=== PATIENT | male | born 1960 | race African-American/Black ===

== ENCOUNTER 2019-06-29 02:11 | Emergency (ER) | payer SELFPAY ==
[~2019-06-29] VITALS: Ht 185.4 cm; Wt 65.0 kg
[2019-06-29] MEDS ORDERED: ONDANSETRON 4MG ODT PO STA (05:58)
[2019-06-29] MEDS ORDERED: SODIUM CHLORIDE 0.9% 1,000 ML IV ONE (05:58)
[2019-06-29] MEDS ORDERED: MORPHINE SULFATE 4 MG/ML CPJ (NOT FOR IM USE) IV STA (05:58)
[2019-06-29] MEDS ORDERED: FAMOTIDINE 20MG/2ML VIAL IV STA (05:58)
[2019-06-29 06:08] LABS: BASOPHILS % 1.1 % (0.0-2.0); EOSINOPHILS % 1.9 % (0.0-5.0); HEMATOCRIT. 43.8 % (42.0-52.0); HEMOGLOBIN. 14.9 g/dL (14.0-18.0); LYMPHOCYTES % 30.3 % (20.0-50.0); MEAN CORPUSCULAR HEMOGLOBIN 31.2 pg (28.0-32.0); MEAN CORPUSCULAR VOLUME 91.6 fL (80.0-94.0); MEAN PLATELET VOLUME 7.2 fl (7.4-10.4); MONOCYTES % 6.6 % (2.0-8.0); NEUTROPHILS % 60.1 % (40.0-76.0); PLATELET 301 x1000/uL (130-400); RED BLOOD CELL COUNT 4.78 mill/uL (4.7-6.1); RED CELL DISTRIBUTION WIDTH 13.7 % (11.6-14.6)
[2019-06-29 06:15] LABS: CHLORIDE 105 mEq/L (98-107)
[2019-06-29 06:16] LABS: PROTHROMBIN TIME 10.7 sec (9.6-11.0)
[2019-06-29 06:19] LABS: ETHANOL BLOOD < 10 mg/dL
[2019-06-29 06:25] VITALS: BP 120/93
== END 2019-06-29 08:12 | disposition home or self-care (01) ==
LOC: ER 02:11
DX: G89.29 Other chronic pain (principal); R10.13 Epigastric pain; R11.2 Nausea with vomiting, unspecified; F17.210 Nicotine dependence, cigarettes, uncomplicated; Z88.6 Allergy status to analgesic agent; Z87.19 Personal history of other diseases of the digestive system
CPT/HCPCS: 36415; 71045; 80053; 80320; 83690; 84484; 85025; 85610; 93005; 96361; 96374; 99284; 99406; J3490; J7030; Z7610; G0480

== ENCOUNTER 2019-08-31 09:59 | Emergency (ER) | payer MEDICAID ==
[~2019-08-31] VITALS: Ht 175.3 cm; Wt 70.0 kg
[2019-08-31] MEDS ORDERED: VISCOUS LIDOCAINE 2% 15 ML UDC PO STA (10:34)
[2019-08-31] MEDS ORDERED: MAGNESIUM/ALUMINUM HYDROXIDE/SIMETHICONE 30ML UDC PO STA (10:34)
[2019-08-31] MEDS ORDERED: DICYCLOMINE HCL 10MG/ML 2ML AMP IM ONE (10:45)
[2019-08-31] MEDS ORDERED: FAMOTIDINE 20MG TABLET PO ONE (10:45)
[2019-08-31] MEDS ORDERED: ONDANSETRON 4MG ODT PO ONE (10:45)
[2019-08-31] MEDS ORDERED: ONDANSETRON 4MG ODT PO NR (11:00)
[2019-08-31] MEDS ORDERED: ONDANSETRON 4MG ODT ONE (11:09)
[2019-08-31 12:40] VITALS: BP 158/80
== END 2019-08-31 12:52 | disposition home or self-care (01) ==
LOC: ER 09:59
DX: R10.13 Epigastric pain (principal); R11.2 Nausea with vomiting, unspecified; R52 Pain, unspecified; Z88.6 Allergy status to analgesic agent; Z87.11 Personal history of peptic ulcer disease
CPT/HCPCS: 96372; 99284; J0500; Q0162

== ENCOUNTER 2019-09-01 09:09 | Emergency (ER) | payer MEDICAID ==
[~2019-09-01] VITALS: Ht 185.4 cm; Wt 61.0 kg
[2019-09-01] MEDS ORDERED: MORPHINE SULFATE 4 MG/ML CPJ (NOT FOR IM USE) IV STA (11:25)
[2019-09-01] MEDS ORDERED: SODIUM CHLORIDE 0.9% 1,000 ML IV SCH (11:25)
[2019-09-01 11:53] LABS: BASOPHILS % 0.7 % (0.0-2.0); EOSINOPHILS % 0.9 % (0.0-5.0); HEMATOCRIT. 52.5 % (42.0-52.0); HEMOGLOBIN. 17.5 g/dL (14.0-18.0); LYMPHOCYTES % 22.1 % (20.0-50.0); MEAN CORPUSCULAR HEMOGLOBIN 30.6 pg (28.0-32.0); MEAN CORPUSCULAR VOLUME 91.5 fL (80.0-94.0); MEAN PLATELET VOLUME 7.1 fl (7.4-10.4); MONOCYTES % 7.7 % (2.0-8.0); NEUTROPHILS % 68.6 % (40.0-76.0); PLATELET 328 x1000/uL (130-400); RED BLOOD CELL COUNT 5.73 mill/uL (4.7-6.1); RED CELL DISTRIBUTION WIDTH 13.2 % (11.6-14.6)
[2019-09-01 11:55] LABS: CHLORIDE 104 mEq/L (98-107)
[2019-09-01] MEDS ORDERED: ONDANSETRON HCL 4MG/2ML INJ IV ONE (12:00)
[2019-09-01] MEDS ORDERED: METOCLOPRAMIDE HCL 10MG/2ML VIAL IV ONE (13:30)
[2019-09-01 15:00] VITALS: BP 132/78
== END 2019-09-01 14:57 | disposition home or self-care (01) ==
LOC: ER 09:09
DX: K52.9 Noninfective gastroenteritis and colitis, unspecified (principal); F17.210 Nicotine dependence, cigarettes, uncomplicated; Z71.6 Tobacco abuse counseling; Z88.6 Allergy status to analgesic agent; Z87.11 Personal history of peptic ulcer disease
CPT/HCPCS: 36415; 80053; 83690; 85025; 96361; 96374; 96375; 99283; J2270; J2405; J2765; Z7610

== ENCOUNTER 2019-09-08 23:18 | Emergency (ER) | payer MEDICAID ==
[~2019-09-08] VITALS: Ht 175.3 cm; Wt 65.0 kg
[2019-09-09] MEDS ORDERED: METOCLOPRAMIDE HCL 10MG/2ML VIAL IV SCH (01:24)
[2019-09-09] MEDS ORDERED: MAGNESIUM/ALUMINUM HYDROXIDE/SIMETHICONE 30ML UDC PO SCH (01:24)
[2019-09-09] MEDS ORDERED: SODIUM CHLORIDE 0.9% 1,000 ML IV ONE (01:24)
[2019-09-09] MEDS ORDERED: FAMOTIDINE 20MG/2ML VIAL IV SCH (01:24)
[2019-09-09] MEDS ORDERED: VISCOUS LIDOCAINE 2% 15 ML UDC PO SCH (01:24)
[2019-09-09 02:27] LABS: EOSINOPHILS % 3.4 % (0.0-5.0); HEMATOCRIT. 42.1 % (42.0-52.0); HEMOGLOBIN. 14.2 g/dL (14.0-18.0); LYMPHOCYTES % 29.7 % (20.0-50.0); MEAN CORPUSCULAR HEMOGLOBIN 30.5 pg (28.0-32.0); MEAN CORPUSCULAR VOLUME 90.1 fL (80.0-94.0); MEAN PLATELET VOLUME 7.4 fl (7.4-10.4); MONOCYTES % 6.7 % (2.0-8.0); NEUTROPHILS % 59.2 % (40.0-76.0); PLATELET 288 x1000/uL (130-400); RED BLOOD CELL COUNT 4.67 mill/uL (4.7-6.1); RED CELL DISTRIBUTION WIDTH 12.9 % (11.6-14.6)
[2019-09-09 02:30] LABS: CHLORIDE 107 mEq/L (98-107)
[2019-09-09 04:30] VITALS: BP 133/87
== END 2019-09-09 04:49 | disposition home or self-care (01) ==
LOC: ER 23:18
DX: K29.70 Gastritis, unspecified, without bleeding (principal); K29.80 Duodenitis without bleeding; K21.9 Gastro-esophageal reflux disease without esophagitis; Z88.6 Allergy status to analgesic agent
CPT/HCPCS: 36415; 74176; 80053; 83690; 85025; 96361; 96374; 96375; 99284; J2765; J3490

== ENCOUNTER 2023-11-30 06:56 | Emergency (ER) | payer OTHER ==
[~2023-11-30] VITALS: Ht 185.4 cm; Wt 80.0 kg
[2023-11-30 07:14] VITALS: BP 164/91; PULSE 80; RESP 18; TEMP 98; O2SAT 98
== END 2023-11-30 09:04 | disposition home or self-care (01) ==
LOC: ER 06:56
DX: R10.13 Epigastric pain (principal); Z88.8 Allergy status to other drugs, medicaments and biological substances
CPT/HCPCS: 99281